=== PATIENT | male | born 1995 | race African-American/Black ===

== ENCOUNTER 2019-04-07 22:20 | Emergency (ER) | payer OTHER ==
[~2019-04-07] VITALS: Ht 167.6 cm; Wt 75.0 kg
[2019-04-07 22:20] VITALS: BP 156/84
[2019-04-07] MEDS ORDERED: METOCLOPRAMIDE 10 MG TAB PO ONE (22:45)
[2019-04-07] MEDS ORDERED: IBUPROFEN 600 MG TAB PO ONE (22:45)
[2019-04-07] MEDS ORDERED: REGL10TA6 PO (23:21)
== END 2019-04-07 23:30 | disposition home or self-care (01) ==
LOC: M ED 22:20
DX: S01.80XA Unspecified open wound of other part of head, initial encounter (principal); S06.0X0A Concussion without loss of consciousness, initial encounter; W01.118A Fall on same level from slipping, tripping and stumbling with subsequent striking against other sharp object, initial encounter; Y92.410 Unspecified street and highway as the place of occurrence of the external cause; Y93.9 Activity, unspecified; Y99.9 Unspecified external cause status

== ENCOUNTER 2019-04-08 21:18 | Emergency (ER) | payer OTHER ==
[~2019-04-08] VITALS: Ht 167.6 cm; Wt 75.0 kg
[2019-04-08 21:18] VITALS: BP 181/88
[~2019-04-08 21:18] MED LIST: REGL10TA6 PO
== END 2019-04-08 22:19 | disposition left against medical advice (07) ==
LOC: M ED 21:18
DX: Z53.29 Procedure and treatment not carried out because of patient's decision for other reasons (principal)